=== PATIENT | female | born 1950 | race Caucasian/White ===

== ENCOUNTER 2024-05-19 09:27 | Inpatient (IN) | payer MEDICARE, BC ==
[2024-05-16 15:08] VITALS: BMI 25.1
[2024-05-19] MEDS ORDERED: Communication Order-Pharmacy FS SCH (17:11)
[2024-05-19] MEDS ORDERED: Ondansetron PF 4 MG/2 ML Vial IVP PRN (17:11)
[2024-05-19] MEDS: HYDROcodone/Acetaminophen 5/325 mg Tablet PO PRN (17:54)
[2024-05-22 10:54] VITALS: BMI 25.1
[2024-05-23] MEDS ORDERED: PROPOFOL 20 ML ONE (09:32)
[2024-05-23] MEDS ORDERED: Lidocaine 2% PF 5 ML VIAL ONE (09:33)
[2024-05-23] MEDS ORDERED: Sodium Chloride 0.9% 100 ML ONE (10:01)
[2024-05-23] MEDS ORDERED: CEFAZOLIN 2 GM VIAL ONE (10:01)
[2024-05-23] MEDS ORDERED: fentaNYL PF 100 MCG/2 ML SYRINGE ONE (10:27)
[2024-05-23] MEDS ORDERED: Ondansetron PF 4 MG/2 ML Vial ONE (10:31)
[2024-05-23] MEDS ORDERED: Dexamethasone 4 mg/ml Vial ONE (10:31)
[2024-05-23] MEDS ORDERED: ePHEDrine Sulfate 50 MG/10 ML VIAL ONE (10:39)
[2024-05-23] MEDS ORDERED: EPINEPHrine 1 MG/ML VIAL ONE (10:49)
[2024-05-23] MEDS ORDERED: Bupivacaine PF 0.5% 30 ML VIAL ONE (10:49)
[2024-05-23] MEDS ORDERED: HYDROmorphone 2 MG/ML VIAL ONE ×2 (11:07→11:52)
[2024-05-23] MEDS ORDERED: fentaNYL 50 mcg/mL 1 mL Vial ONE (11:52)
[2024-05-23] MEDS ORDERED: Fentanyl 250 MCG/5 ML VIAL ONE (12:03)
[2024-05-23] MEDS ORDERED: Midazolam HCl 2 mg/2 ml Vial ONE (12:28)
[2024-05-23] MEDS: fentaNYL 50 mcg/mL 1 mL Vial SLOW IVP PRN (15:23)
[2024-05-23] MEDS: Acetaminophen 325 MG TAB PO PRN (17:22)
[2024-05-23] MEDS: CEFAZOLIN 2 GM in Sodium Chloride 0.9% 100 ML IVPB SCH (17:23)
[2024-05-23] MEDS ORDERED: traMADol HCl 50 MG TAB PO PRN (17:27)
[2024-05-23] MEDS: traMADol HCl 50 MG TAB PO PRN (21:20)
[2024-05-25] MEDS: Gabapentin 300 MG CAP PO SCH (09:05)
[2024-05-25] MEDS: Aspirin 325 mg Enteric Coated Tablet PO SCH (09:05)
[2024-05-26 12:24] VITALS: BP 149/74; TEMP 97.3
== END 2024-05-26 14:16 | disposition still patient (30) | DRG 494 ==
LOC: SDC 09:27 → SURG A 17:04
PROVIDERS: ADMIT Orthopaedic Surgery; ATTEND Orthopaedic Surgery
PROC: 0QSJ04Z Reposition Right Fibula with Internal Fixation Device, Open Approach (ICD-10-PCS; principal; 2024-05-23)
PROC: 0QSG04Z Reposition Right Tibia with Internal Fixation Device, Open Approach (ICD-10-PCS; 2024-05-23)
DX: S82.851A Displaced trimalleolar fracture of right lower leg, initial encounter for closed fracture (principal); X58.XXXA Exposure to other specified factors, initial encounter; I10 Essential (primary) hypertension; Z98.890 Other specified postprocedural states; Z79.899 Other long term (current) drug therapy
CPT/HCPCS: 36416; 97139; C1713; J0171; J0665; J1100; J1170; J2001; J2250; J2405; J2704; J3010